=== PATIENT | female | born 1990 | race Caucasian/White ===

== ENCOUNTER 2016-09-05 07:15 | Day surgery (SDC) | payer OTHER ==
[~2016-09-05] VITALS: Ht 160 cm; Wt 89.6 kg
[2016-09-05] VITALS (7 sets, daily range): BP systolic 95–113; BP diastolic 61–72; PULSE 64–82; RESP 16–23; TEMP 97.3–98.4; O2SAT 97–98; Ht 160 cm; Wt 89.6 kg
[~2016-09-05 07:15] MED LIST: LIDOCAINE 1% (10mg/ml) 2ml SDV INJ ONE; LR 1,000 ML IV SCH
[2016-09-05 07:42] LABS: BASOPHILS % (AUTO) 0.3 % (0-2); EOSINOPHILS # (AUTO) 0.1 T/MM3 (0-0.5); EOSINOPHILS % (AUTO) 1.2 % (0-4); HCT - HEMATOCRIT 38.1 % (36-46); HGB - HEMOGLOBIN 12.7 GM/DL (12-16); IMMATURE GRANULOCYTE # (AUTO) 0.01 T/MM3 (0.00-0.03); IMMATURE GRANULOCYTE % (AUTO) 0.1 % (0.0-0.5); LYMPHOCYTES # (AUTO) 2.1 T/MM3 (1-4.8); LYMPHOCYTES % (AUTO) 27.6 % (23-45); MEAN CORPUSCULAR HGB 33.2 UUG (26-34); MEAN CORPUSCULAR HGB CONC(MCHC 33.3 GM/DL (31-37); MEAN CORPUSCULAR VOLUME 99.7 UM3 (80-100); MEAN PLATELET VOLUME 10.7 UM3 (9.4-12.4); MONOCYTES # (AUTO) 0.7 T/MM3 (0-0.8); MONOCYTES % (AUTO) 8.9 % (0-9.0); NEUTROPHILS #(AUTO)-ABSOLUTE 4.8 T/MM3 (1.8-7.7); NEUTROPHILS % (AUTO) 61.9 % (33-66); RED BLOOD COUNT 3.82 M/MM3 (4.00-5.20); WBC - WHITE BLOOD COUNT 7.7 T/MM3 (4.5-11.0)
[2016-09-05] MEDS ORDERED: CEFAZOLIN 1 GRAM INJECTION IV ONE (08:00)
--- NOTE | 2016-09-05 08:07 | ANESPREOP ---
Anesthesia Record Date and Time DATE: 09/05/16 TIME: 08:04 Pre-Op Diagnosis Left Mariela Gonzalez Proposed Surgical Procedure INCISION & DRAINAGE MARSUPILIZATION ABSCESS Allergies: Coded Allergies: No Known Allergies (Verified , 09/05/16) Ht/Wt/BMI Height: 5 ' 3.00 " Weight: 89.600 kg BMI: 35.0 kg/m2 Vital Signs Date Time Temp Pulse Resp B/P Pulse Ox O2 Delivery O2 Flow Rate FiO2 09/05/16 07:26 98.4 70 16 113/71 97 Room Air Medications Inpatient Medications Current Medications Medications (Trade) Dose Ordered Sig/Patrick Start Time Stop Time Status Last Admin Dose Admin Lactated Ringer's (Lactated Ringers) 1,000 ml @ 50 mls/hr Q20H 09/05/16 07:00 09/05/16 07:52 50 MLS/HR No Active Prescriptions or Reported Meds Currently on Beta Ramila: No Medical/Surgical History Anesthesia PMH: Denies: *Diabetes, Anesthesia Reactions (NO AIRWAY ISSUES), Arthritis, Cancer, Clotting Problems, Glaucoma, Malignant Hyperthermia, Sleep Apnea, Thyroid Disease Smoking Status: Current every day smoker # of Packs per Day: 0.5 # of Years: 10 Use Chewing Tobacco?: No Substance Use Type: does not use Alcohol Intake: a few times a month HX of Last Menstrual Period: AUGUST 2016 Past Surgical History Orthopedic Surgeries: Abdominal Surgeries: Yes - KILLIAN Genitourinary Surgeries: Cardiac Surgeries: Endocrine Surgeries: Reproductive Surgeries: Yes - Neurological Surgeries: Ear Surgeries: Nose Surgeries: Throat Surgeries: Other Surgeries: Anesthesia Adverse Reactions: FOUND none Family Hx of Anesthesia Advers: none Hx of Motion Sickness: No Pertinent Findings Laboratory Tests 09/05/16 07:36 Test 09/05/16 07:36 Human Chorionic Gonadotropin, Qual Negative (NEGATIVE) EKG Rhythm: Sinus Rhythm Physical Exam Respiratory: Bilat breath sounds equal, Lungs clear Cardiovascular: FOUND Regular rate, rhythm, FOUND No murmur Airway Assessment Mallampati Score: I TMD: 3 Fingerbreadths Neck Extension: Good Overall Assessment: No Airway Concerns ASA: 2 Plan Anesthesia Plan: TIVA Discussion Discussed risks/options/alternatives of anesthesia and questions answered. Patient consents. Nursing pain assessment noted. Present: Friend Attestation Statement Prior to the delivery of any anesthetic medication, I examined the patient, developed the plan, obtained the patient's consent and discussed the risk and benefits of the procedure with the patient/guardian. REED JORDAN CRNA Sep 05, 2016 08:07
[2016-09-05] MEDS ORDERED: MIDAZOLAM 2mg/2ml INJECTION IV ONE (08:15)
[2016-09-05 08:31] LABS: BLOOD, URINE NEGATIVE (NEGATIVE); COLOR,URINE YELLOW (YELLOW); LEUKOCYTE ESTERASE ,URINE NEGATIVE (NEGATIVE); NITRITE,URINE NEGATIVE (NEGATIVE); UROBILINOGEN,URINE 0.2 EU/DL (NORMAL)
[2016-09-05] MEDS ORDERED: BUPIVACAINE 0.25% (2.5mg/ml) INJ 30ml SDV ONE (08:45)
[2016-09-05] MEDS ORDERED: KETAMINE 500mg/10ml INJECTION ONE (08:49)
[2016-09-05] MEDS ORDERED: FENTANYL 100mcg/2ml INJECTION ONE (08:49)
--- NOTE | 2016-09-05 09:42 | GYNOPNOTE1 ---
HOME HOSPICE RN Postoperative Note Date of Operation: 09/05/16 Preoperative Diagnosis: Other Preoperative Dx Comments left Bartholin's gland abscess Postoperative Diagnosis: Same as Preoperative Proc: Marsupialization left Bartholin's gland Surgeon: Kae Muller MD Anesthesia Type: TIVA Comments 20cc EBL KAE MULLER MD Sep 05, 2016 09:42
[2016-09-05] MEDS ORDERED: ONDANSETRON 4mg/2ml INJECTION IV PRN (09:45)
[2016-09-05] MEDS ORDERED: FENTANYL 100mcg/2ml INJECTION IV PRN (09:45)
[2016-09-05] MEDS ORDERED: HYDROCODONE/APAP 5 mg/325 mg TABLET PO PRN (09:45)
[2016-09-05] MEDS ORDERED: METOCLOPRAMIDE 10mg/2ml INJECTION IV PRN (09:45)
--- NOTE | 2016-09-05 10:09 | ANESPO ---
Post-Op Note Date 09/05/16 Time: 10:07 Status Pt Participated in Evaluation: Pt participated in person Vital Signs Date Time Temp Pulse Resp B/P Pulse Ox O2 Delivery O2 Flow Rate FiO2 09/05/16 09:45 97.3 81 16 95/61 97 Room Air Respiratory Function: Airway patent, Regular respirations Cardiovascular Function: Regular pulse Mental Status: Alert/oriented Pain Level Intensity: 2 Hydration: Taking po fluids Complications during Recovery None apparent Follow-Up Instructions Instructions Per Surgeon DI CHAO CRNA Sep 05, 2016 10:09
--- NOTE | 2016-09-05 13:19 | OPNOTEF ---
DATE OF SURGERY 09/05/2016 PREOPERATIVE DIAGNOSIS Recurrent left Bartholin's gland abscess. POSTOPERATIVE DIAGNOSIS Recurrent left Bartholin's gland abscess. PROCEDURES Marsupialization of left Bartholin's gland. SURGEON Kae Mederos MD ANESTHESIA TIVA with local DIRECTOR NON PROFIT Aung Cutler CRNA EBL 20 mL DESCRIPTION OF PROCEDURE Ms. May was brought to the OR and placed on the OR table in the comfortable supine position. She was given IV analgesia with good airway control. She was then placed in the standard lithotomy position. The perineum and vagina were prepped and draped in the usual sterile fashion. The left Bartholin's gland was examined and palpated. Dilute Marcaine was infiltrated overlying this. A linear incision of approximately 2.5 cm was made overlying this cyst. The deeper tissues were then bluntly dissected and the gland entered. This was probed with a mosquito clamp. I then used 3-0 Vicryl to suture the gland open circumferentially around the opening. I inserted a piece of 1/4-inch Nu Gauze into the incision. Hemostasis was under good control. We then returned Ms. May to the supine position. She was awakened and transferred to recovery in stable condition. [place]
== END 2016-09-05 11:27 | disposition home or self-care (01) ==
LOC: SCU 07:15
PROVIDERS: ATTEND Obstetrics & Gynecology
DX: N75.1 Abscess of Bartholin's gland (principal); Z97.5 Presence of (intrauterine) contraceptive device; F17.200 Nicotine dependence, unspecified, uncomplicated
CPT/HCPCS: 36415; 81003; 84703; 85025